=== PATIENT | male | born 1970 | race Caucasian/White ===

== ENCOUNTER → 2017-03-15 | Outpatient (CLI) | payer BC ==
--- NOTE | 2017-03-15 22:36 | CT ---
EXAMINATION TYPE: CT abdomen pelvis wo con DATE OF EXAM: 03/15/2017 HISTORY: Right flank pain and hematuria x 4 weeks. History of kidney stones. CT DLP: 578.60 mGycm. Automated Exposure Control for Dose Reduction was Utilized. TECHNIQUE: CT scan of the abdomen and pelvis is performed without oral or IV contrast. COMPARISON: CT chest abdomen and pelvis February 02, 2016 FINDINGS: Within the limitations of a non-contrast study, the following observations are made. LUNG BASES: No significant abnormality is appreciated. LIVER/GB: Liver is diffusely low dense consistent with fatty infiltration. PANCREAS: No significant abnormality is seen. SPLEEN: No significant abnormality is seen. ADRENALS: No significant abnormality is seen. KIDNEYS: There is redemonstration of 2-3 small calculi scattered throughout left kidney not significa ntly changed in size or number from prior study. Largest stone measures 5 mm on long axis on axial im age 61 and is stable. No right-sided renal calculi are evident. No hydronephrosis or obstructing raffaele l calculi are clearly present bilaterally. No intraluminal calculus in the bladder is seen. BOWEL: Debris-filled stomach is present suggesting recent meal ingestion prior to study. No suspiciou s dilatation is seen. GENITAL ORGANS: No gross abnormality seen. LYMPH NODES: No greater than 1cm abdominal or pelvic lymph nodes are appreciated. OSSEOUS STRUCTURES: There is posterior fusion hardware lumbosacral junction redemonstrated. There is stable grade 1 anterolisthesis of L5 on S1 felt present. Streak artifact from metallic hardware makes evaluation at this level suboptimal. OTHER: No significant additional abnormality is seen. IMPRESSION: There are 2-3 small nonobstructing left renal calculi redemonstrated. No hydronephrosis o r obstructing renal calculi are clearly seen bilaterally.
== END | disposition home or self-care (01) ==
LOC: RADCTMAIN 18:51
PROVIDERS: ATTEND Urology
DX: N20.0 Calculus of kidney (principal); Z88.0 Allergy status to penicillin; Z88.5 Allergy status to narcotic agent
CPT/HCPCS: 74176

== ENCOUNTER → 2020-02-14 | Outpatient (CLI) | payer BC ==
--- NOTE | 2020-02-14 09:07 | US ---
EXAMINATION TYPE: US liver DATE OF EXAM: 02/14/2020 COMPARISON: CT 2017 CLINICAL HISTORY: K76.0 NoN alcoholic Fatty liver. Intermittent abdomen pain and nausea x 5 years EXAM MEASUREMENTS: Liver Length: 18.2 cm Gallbladder Wall: 0.2 cm CBD: 0.5 cm Right Kidney: 11.4 x 4.8 x 5.4 cm Pancreas: visualized portions wnl, limited by overlying midline bowel gas Liver: enlarged, attenuating, heterogeneous, increased echogenicity Gallbladder: wnl Evidence for sonographic Horton's sign: no CBD: visualized portions wnl, limited by overlying bowel gas Right Kidney: 0.4cm echogenic focus mid pole IMPRESSION: Hepatic steatosis with underlying hepatomegaly.
[2020-02-14 11:04] LABS: ALT 67 U/L (4-49); AST 51 U/L (17-59); African American GFR (CKD) >90 (>60 ml/min/1.73 sqM); Albumin 5.1 g/dL (3.5-5.0); Alkaline Phosphatase 65 U/L (38-126); Anion Gap 9 mmol/L; Blood Urea Nitrogen 18 mg/dL (9-20); Calcium 9.7 mg/dL (8.4-10.2); Carbon Dioxide 28 mmol/L (22-30); Chloride 104 mmol/L (98-107); Glucose 106 mg/dL (74-99); Non-African American GFR(CKD) 79 (>60 ml/min/1.73 sqM); Potassium 4.4 mmol/L (3.5-5.1); Sodium 141 mmol/L (137-145); Total Bilirubin 0.8 mg/dL (0.2-1.3); Total Protein 7.6 g/dL (6.3-8.2)
== END | disposition home or self-care (01) ==
LOC: RADUSWWP 08:17
PROVIDERS: ATTEND Internal Medicine Gastroenterology
DX: K76.0 Fatty (change of) liver, not elsewhere classified (principal); R77.8 Other specified abnormalities of plasma proteins; R16.0 Hepatomegaly, not elsewhere classified
CPT/HCPCS: 36415; 76705; 80053; 82105

== ENCOUNTER → 2020-07-22 | Outpatient (CLI) | payer BC | END | disposition home or self-care (01) | LOC: LABWHC1 09:41 | PROVIDERS: ATTEND Physician Assistant | DX: R50.9 Fever, unspecified (principal) | CPT/HCPCS: U0003; C9803 ==

== ENCOUNTER → 2021-11-24 | Outpatient (CLI) | payer BC ==
--- NOTE | 2021-11-24 07:47 | US ---
EXAMINATION TYPE: US liver DATE OF EXAM: 11/24/2021 COMPARISON: NONE CLINICAL HISTORY: K76.0 FATTY (CHANGE OF) LIVER, NOT ELSEWHERE CLASSIFIED. EXAM MEASUREMENTS: Liver Length: 18.5 cm Gallbladder Wall: 0.2 cm CBD: 0.2 cm Right Kidney: 10.4 x 3.9 x 5.9 cm Pancreas: Mostly obscured by bowel gas, portions visualized wnl Liver: Increased attenuation, upper limits of normal in size Gallbladder: wnl Evidence for sonographic Horton's sign: No CBD: wnl Right Kidney: No hydronephrosis or masses seen, inferior pole somewhat obscured by overlying bowel g as IMPRESSION: Suspect hepatic steatosis.
== END | disposition home or self-care (01) ==
LOC: RADUSWWP 07:01
PROVIDERS: ATTEND Internal Medicine Gastroenterology
DX: K76.0 Fatty (change of) liver, not elsewhere classified (principal)
CPT/HCPCS: 76705

== ENCOUNTER → 2022-05-11 | Outpatient (CLI) | payer OTHER ==
[2022-05-11 10:52] LABS: African American GFR (CKD) 88.4 (60.0-200.0); Albumin 4.7 g/dL (3.8-4.9); Albumin/Globulin Ratio 1.74 (1.60-3.17); Anion Gap 8.2 mmol/L (10.00-18.00); BUN/Creat Ratio 12.45 Ratio (12.00-20.00); Blood Urea Nitrogen 13.7 mg/dL (9.0-27.0); Calcium 9.5 mg/dL (8.7-10.3); Carbon Dioxide 28.8 mmol/L (20.0-27.5); Globulin 2.7 g/dL (1.6-3.3); Non-African American GFR(CKD) 76.2 (60.0-200.0); Potassium 4.8 mmol/L (3.5-5.5); Total Bilirubin 0.6 mg/dL (0.30-1.20); Total Protein 7.4 g/dL (6.2-8.2)
[2022-05-11 11:35] LABS: Basophils # (A) 0.05 X 10*3/uL (0.00-0.10); Basophils % (A) 1.2 %; Eosinophils # (A) 0.11 X 10*3/uL (0.04-0.35); Eosinophils % (A) 2.6 %; HCT 47.8 % (39.6-50.0); HGB 16.3 g/dL (13.0-17.0); Immature Grans, Automated 0.2 %; Lymphocytes % (A) 39.8 %; MCH 30.8 pg (27.0-32.0); MCHC 34.1 g/dL (32.0-37.0); MCV 90.4 fL (80.0-97.0); Mean Platelet Volume 11.2 fL (9.5-12.2); Monocytes # (A) 0.22 X 10*3/uL (0.20-1.00); Monocytes % (A) 5.2 %; NRBC Per 100 WBC 0 /100 WBCS (0.0-0.0); Neutrophils # (A) 2.18 X 10*3/uL (1.80-7.70); Platelet Count 118 X 10*3/uL (140-440); RBC 5.29 X 10*6/uL (4.40-5.60); RDW 12.7 % (11.5-14.5); WBC 4.27 X 10*3/uL (4.50-10.00)
== END | disposition home or self-care (01) ==
LOC: LABWHC1 06:55
PROVIDERS: ATTEND Internal Medicine Gastroenterology
DX: K76.0 Fatty (change of) liver, not elsewhere classified (principal)
CPT/HCPCS: 36415; 80053; 82105; 85025

== ENCOUNTER → 2022-06-23 | Outpatient (CLI) | payer OTHER | END | disposition home or self-care (01) | LOC: LABWHC1 13:39 | PROVIDERS: ATTEND Family Medicine | DX: E11.9 Type 2 diabetes mellitus without complications (principal) | CPT/HCPCS: 82043; 82570 ==

== ENCOUNTER → 2022-08-05 | Outpatient (CLI) | payer OTHER ==
[2022-08-05 11:00] LABS: African American GFR (CKD) 112.6 (60.0-200.0); Albumin 4.7 g/dL (3.8-4.9); Albumin/Globulin Ratio 1.96 (1.60-3.17); Anion Gap 6.1 mmol/L (10.00-18.00); BUN/Creat Ratio 18.78 Ratio (12.00-20.00); Blood Urea Nitrogen 16.9 mg/dL (9.0-27.0); Calcium 10.4 mg/dL (8.7-10.3); Carbon Dioxide 32.9 mmol/L (20.0-27.5); Globulin 2.4 g/dL (1.6-3.3); Magnesium 2.1 mg/dL (1.5-2.4); Non-African American GFR(CKD) 97.2 (60.0-200.0); Potassium 4.4 mmol/L (3.5-5.5); Total Bilirubin 0.7 mg/dL (0.30-1.20); Total Protein 7.1 g/dL (6.2-8.2)
[2022-08-05 12:33] LABS: Basophils # (A) 0.03 X 10*3/uL (0.00-0.10); Basophils % (A) 0.7 %; Eosinophils # (A) 0.13 X 10*3/uL (0.04-0.35); Eosinophils % (A) 2.8 %; HCT 47.8 % (39.6-50.0); HGB 16.5 g/dL (13.0-17.0); Immature Grans, Automated 0.2 %; Lymphocytes # (A) 1.68 X 10*3/uL (0.90-5.00); Lymphocytes % (A) 36.4 %; MCHC 34.5 g/dL (32.0-37.0); MCV 89.8 fL (80.0-97.0); Mean Platelet Volume 11.5 fL (9.5-12.2); Monocytes # (A) 0.26 X 10*3/uL (0.20-1.00); Monocytes % (A) 5.6 %; NRBC Per 100 WBC 0 /100 WBCS (0.0-0.0); Neutrophils % (A) 54.3 %; Platelet Count 114 X 10*3/uL (140-440); RBC 5.32 X 10*6/uL (4.40-5.60); RDW 12.2 % (11.5-14.5); WBC 4.61 X 10*3/uL (4.50-10.00)
== END | disposition home or self-care (01) ==
LOC: LABWHC1 07:04
PROVIDERS: ATTEND Family Medicine
DX: R25.2 Cramp and spasm (principal)
CPT/HCPCS: 36415; 80053; 83735; 85025

== ENCOUNTER → 2022-10-20 | Outpatient (CLI) | payer MEDICARE ==
[2022-10-20 11:33] LABS: Platelet Count 118 X 10*3/uL (140-440)
== END | disposition home or self-care (01) ==
LOC: LABWHC1 06:46
PROVIDERS: ATTEND Physician Assistant
DX: R79.89 Other specified abnormal findings of blood chemistry (principal)
CPT/HCPCS: 36415; 85049

== ENCOUNTER → 2023-01-19 | Outpatient (CLI) | payer OTHER ==
[2023-01-19 11:04] LABS: HCT 48.7 % (39.6-50.0); HGB 16.5 d/dL (12.0-15.0); MCH 30.1 pg (27.0-32.0); MCHC 33.9 d/dL (32.0-37.0); MCV 88.9 FL (80.0-97.0); Mean Platelet Volume 10.8 FL (9.5-12.2); NRBC Per 100 WBC 0 X 10*3/uL (0.00-0.01); Platelet Count 124 X 10*3/uL (140-440); RBC 5.48 X 10*6/uL (4.40-5.60); RDW 12.6 % (11.5-14.5); WBC 5.31 X 10*3/uL (4.50-10.00)
[2023-01-19 11:34] LABS: Blood Urea Nitrogen 18.9 mg/dL (9.0-27.0); Calcium 9.9 mg/dL (8.7-10.3); Carbon Dioxide 30.2 mmol/L (21.6-31.8); Chloride 100 mmol/L (96-109); Glucose 180 mg/dL (70-110); Potassium 4.3 mmol/L (3.5-5.5); Sodium 140 mmol/L (135-145)
== END | disposition home or self-care (01) ==
LOC: LABWHC1 06:53
PROVIDERS: ATTEND Family Medicine
DX: E11.65 Type 2 diabetes mellitus with hyperglycemia (principal)
CPT/HCPCS: 36415; 80048; 83036; 85027

== ENCOUNTER → 2023-03-24 | Outpatient (CLI) | payer BC, OTHER ==
--- NOTE | 2023-03-24 10:00 | US ---
EXAMINATION TYPE: US liver DATE OF EXAM: 03/24/2023 COMPARISON: NONE CLINICAL INDICATION: Male, 52 years old with history of K76.0 FATTY (CHANGE OF) LIVER, NOT ELSEWHERE CLASS; fatty liver TECHNIQUE: Multiple sonographic images of the right upper quadrant are obtained. FINDINGS: EXAM MEASUREMENTS: Liver Length: 19.3 cm Gallbladder Wall: .2 cm CBD: .4 cm Right Kidney: 10.1 x 4.5 x 4.4 cm READ[employer] ADVISORY SERVICE LIBRARIAN NOTES: Pancreas: Obscured by bowel gas Liver: Increased attenuation fatty infiltrate hepatomegaly. Gallbladder: No stones seen Evidence for sonographic Horton's sign: No CBD: wnl Right Kidney: No hydronephrosis or masses seen IMPRESSION: Hepatic steatosis with underlying hepatomegaly.
== END | disposition home or self-care (01) ==
LOC: RADUSWWP 08:28
PROVIDERS: ATTEND Internal Medicine Gastroenterology
DX: K76.0 Fatty (change of) liver, not elsewhere classified (principal); R16.0 Hepatomegaly, not elsewhere classified
CPT/HCPCS: 76705

== ENCOUNTER → 2023-05-11 | Outpatient (CLI) | payer BC ==
[2023-05-11 11:29] LABS: HCT 47.2 % (39.6-50.0); HGB 16.5 d/dL (13.0-17.0); MCH 30.8 pg (27.0-32.0); MCV 88.2 FL (80.0-97.0); Mean Platelet Volume 10.7 FL (9.5-12.2); NRBC Per 100 WBC 0 X 10*3/uL (0.00-0.01); Platelet Count 111 X 10*3/uL (140-440); RBC 5.35 X 10*6/uL (4.40-5.60); RDW 12.4 % (11.5-14.5); WBC 5.16 X 10*3/uL (4.50-10.00)
[2023-05-11 11:41] LABS: Microalbumin Creatinine Ratio <6 mg/g Cr (0-30)
[2023-05-11 11:52] LABS: ALT 57 U/L (10-49); AST 31 U/L (14-35); Albumin 4.7 d/dL (3.8-4.9); Albumin/Globulin Ratio 1.96 Ratio (1.60-3.17); Alkaline Phosphatase 99 U/L (41-126); Blood Urea Nitrogen 17.8 mg/dL (9.0-27.0); Calcium 9.9 mg/dL (8.7-10.3); Carbon Dioxide 29.1 mmol/L (21.6-31.8); Chloride 105 mmol/L (96-109); Chol/HDL Ratio 4.45 Ratio; Globulin 2.4 d/dL (1.6-3.3); Glucose 160 mg/dL (70-110); LDL Cholesterol,Calculated 85.6 mg/dL (0.0-131.0); Potassium 4.6 mmol/L (3.5-5.5); Sodium 142 mmol/L (135-145); Total Bilirubin 0.7 mg/dL (0.3-1.2); Total Protein 7.1 d/dL (6.2-8.2)
[2023-05-11 11:53] LABS: Prostate Specific Antigen 0.58 ng/mL (0.000-3.500)
[2023-05-11 12:18] LABS: Appearance,Urine Clear (Clear); Bilirubin,Urine Negative (Negative); Blood,Urine Negative (Negative); Color,Urine Yellow (Yellow); Ketones,Urine Trace (Negative); Nitrite,Urine Negative (Negative); PH, Urine 5.5
== END | disposition home or self-care (01) ==
LOC: LABWHC1 06:58
PROVIDERS: ATTEND Family Medicine
DX: Z00.00 Encounter for general adult medical examination without abnormal findings (principal); E11.65 Type 2 diabetes mellitus with hyperglycemia
CPT/HCPCS: 36415; 80053; 80061; 81003; 82043; 82570; 83036; 84153; 85027

== ENCOUNTER → 2023-06-14 | Outpatient (CLI) | payer BC ==
[2023-06-14 08:03] LABS: Mean Platelet Volume 7.9; Platelet Count 113 k/uL (150-450)
== END | disposition home or self-care (01) ==
LOC: LABWHC1 06:53
PROVIDERS: ATTEND Physician Assistant
DX: D69.6 Thrombocytopenia, unspecified (principal); K76.0 Fatty (change of) liver, not elsewhere classified
CPT/HCPCS: 36415; 84460; 85049

== ENCOUNTER → 2023-10-27 | Outpatient (CLI) | payer BC ==
--- NOTE | 2023-10-27 08:44 | US ---
EXAMINATION TYPE: US liver DATE OF EXAM: 10/27/2023 COMPARISON: 03/24/2023. CLINICAL INDICATION: Male, 53 years old with history of K76.0 FATTY (CHANGE OF) LIVER, NOT ELSEWHERE CLASS; known fatty liver, no symptoms TECHNIQUE: Multiple sonographic images of the right upper quadrant are obtained. FINDINGS: EXAM MEASUREMENTS: Liver Length: 18.0 cm Gallbladder Wall: 0.2 cm CBD: 0.6 cm Right Kidney: 11.7 x 5.4 x 5.1 cm Pancreas: wnl Liver: fatty appearance, difficult to penetrate, upper limits of normal, no evidence for mass, cysti c structure, or dilated duct. Gallbladder: wnl Evidence for sonographic Horton's sign: no CBD: wnl Right Kidney: wnl IMPRESSION: 1. No evidence for acute process. 2. Hepatic steatosis no suspicious observations.
[2023-10-27 11:46] LABS: Basophils # (A) 0.02 X 10*3/uL (0.00-0.10); Basophils % (A) 0.5 %; Eosinophils # (A) 0.08 X 10*3/uL (0.04-0.35); Eosinophils % (A) 2.2 %; HGB 16.1 g/dL (13.0-17.0); Lymphocytes # (A) 1.12 X 10*3/uL (0.90-5.00); Lymphocytes % (A) 30.4 %; MCH 31.2 pg (27.0-32.0); MCHC 35.8 g/dL (32.0-37.0); MCV 87.2 FL (80.0-97.0); Mean Platelet Volume 11.8 FL (9.5-12.2); Monocytes # (A) 0.21 X 10*3/uL (0.20-1.00); Monocytes % (A) 5.7 %; NRBC Per 100 WBC 0 X 10*3/uL (0.00-0.01); Neutrophils # (A) 2.25 X 10*3/uL (1.80-7.70); Neutrophils % (A) 60.9 %; Platelet Count 83 X 10*3/uL (140-440); RBC 5.16 X 10*6/uL (4.40-5.60); RDW 12.4 % (11.5-14.5); WBC 3.69 X 10*3/uL (4.50-10.00)
[2023-10-27 12:15] LABS: ALT 110 U/L (10-49); AST 62 U/L (14-35); Albumin 4.4 g/dL (3.8-4.9); Albumin/Globulin Ratio 1.83 Ratio (1.60-3.17); Alkaline Phosphatase 147 U/L (41-126); BUN/Creat Ratio 18.12 Ratio (12.00-20.00); Blood Urea Nitrogen 14.5 mg/dL (9.0-27.0); Calcium 9.5 mg/dL (8.7-10.3); Carbon Dioxide 28.3 mmol/L (21.6-31.8); Chloride 102 mmol/L (96-109); Globulin 2.4 g/dL (1.6-3.3); Glucose 345 mg/dL (70-110); Potassium 4.3 mmol/L (3.5-5.5); Sodium 140 mmol/L (135-145); Total Bilirubin 0.6 mg/dL (0.3-1.2); Total Protein 6.8 g/dL (6.2-8.2)
== END | disposition home or self-care (01) ==
LOC: RADUSWWP 07:13
PROVIDERS: ATTEND Internal Medicine Gastroenterology
DX: K76.0 Fatty (change of) liver, not elsewhere classified (principal)
CPT/HCPCS: 36415; 76705; 80053; 82105; 85025

== ENCOUNTER → 2023-12-22 | Outpatient (CLI) | payer BC ==
[2023-12-22 10:45] LABS: Microalbumin Creatinine Ratio <7 mg/g Cr (0-30)
[2023-12-22 10:51] LABS: ALT 70 U/L (10-49); AST 42 U/L (14-35); Albumin 4.5 g/dL (3.8-4.9); Albumin/Globulin Ratio 2.05 Ratio (1.60-3.17); Alkaline Phosphatase 109 U/L (41-126); Blood Urea Nitrogen 17.6 mg/dL (9.0-27.0); C-Peptide 6.13 ng/mL (0.81-3.85); Calcium 9.3 mg/dL (8.7-10.3); Carbon Dioxide 26.9 mmol/L (21.6-31.8); Chloride 104 mmol/L (96-109); Chol/HDL Ratio 4.97 Ratio; Globulin 2.2 g/dL (1.6-3.3); Glucose 186 mg/dL (70-110); LDL Cholesterol,Calculated 64.8 mg/dL (0.0-131.0); Potassium 4.5 mmol/L (3.5-5.5); Sodium 141 mmol/L (135-145); Total Bilirubin 0.5 mg/dL (0.3-1.2); Total Protein 6.7 g/dL (6.2-8.2)
== END | disposition home or self-care (01) ==
LOC: LABWHC1 06:51
PROVIDERS: ATTEND Internal Medicine
DX: E11.65 Type 2 diabetes mellitus with hyperglycemia (principal)
CPT/HCPCS: 36415; 80053; 80061; 82043; 82570; 83036; 84681

== ENCOUNTER → 2023-12-29 | Outpatient (CLI) | payer BC ==
[2023-12-29 10:42] LABS: Basophils # (A) 0.03 X 10*3/uL (0.00-0.10); Basophils % (A) 0.6 %; Eosinophils # (A) 0.14 X 10*3/uL (0.04-0.35); Eosinophils % (A) 2.8 %; HCT 47.6 % (39.6-50.0); HGB 16.1 g/dL (13.0-17.0); Lymphocytes # (A) 1.84 X 10*3/uL (0.90-5.00); Lymphocytes % (A) 36.2 %; MCH 31.1 pg (27.0-32.0); MCHC 33.8 g/dL (32.0-37.0); MCV 92.1 FL (80.0-97.0); Monocytes % (A) 5.9 %; NRBC Per 100 WBC 0 X 10*3/uL (0.00-0.01); Neutrophils # (A) 2.76 X 10*3/uL (1.80-7.70); Neutrophils % (A) 54.3 %; Platelet Count 102 X 10*3/uL (140-440); RBC 5.17 X 10*6/uL (4.40-5.60); RDW 12.9 % (11.5-14.5); WBC 5.08 X 10*3/uL (4.50-10.00)
== END | disposition home or self-care (01) ==
LOC: LABWHC1 06:52
PROVIDERS: ATTEND Family Medicine
DX: D69.6 Thrombocytopenia, unspecified (principal)
CPT/HCPCS: 36415; 85025

== ENCOUNTER → 2024-04-29 | Outpatient (CLI) | payer BC ==
[2024-04-29 10:21] LABS: Basophils # (A) 0.03 X 10*3/uL (0.00-0.10); Basophils % (A) 0.6 %; Eosinophils # (A) 0.13 X 10*3/uL (0.04-0.35); Eosinophils % (A) 2.4 %; HCT 47.9 % (39.6-50.0); HGB 16.8 g/dL (13.0-17.0); Lymphocytes # (A) 1.67 X 10*3/uL (0.90-5.00); Lymphocytes % (A) 31.3 %; MCH 31.2 pg (27.0-32.0); MCHC 35.1 g/dL (32.0-37.0); MCV 88.9 FL (80.0-97.0); Monocytes # (A) 0.26 X 10*3/uL (0.20-1.00); Monocytes % (A) 4.9 %; NRBC Per 100 WBC 0 X 10*3/uL (0.00-0.01); Neutrophils # (A) 3.24 X 10*3/uL (1.80-7.70); Neutrophils % (A) 60.6 %; Platelet Count 103 X 10*3/uL (140-440); RBC 5.39 X 10*6/uL (4.40-5.60); RDW 12.3 % (11.5-14.5); WBC 5.34 X 10*3/uL (4.50-10.00)
[2024-04-29 10:33] LABS: Blood Urea Nitrogen 15.4 mg/dL (9.0-27.0); Carbon Dioxide 27.3 mmol/L (21.6-31.8); Chloride 103 mmol/L (96-109); Glucose 151 mg/dL (70-110); Potassium 4.3 mmol/L (3.5-5.5); Sodium 141 mmol/L (135-145)
[2024-04-29 10:34] LABS: ALT 75 U/L (10-49); AST 49 U/L (14-35); Albumin 4.7 g/dL (3.8-4.9); Albumin/Globulin Ratio 1.88 Ratio (1.60-3.17); Alkaline Phosphatase 102 U/L (41-126); Calcium 9.5 mg/dL (8.7-10.3); Globulin 2.5 g/dL (1.6-3.3); Total Bilirubin 0.8 mg/dL (0.3-1.2); Total Protein 7.2 g/dL (6.2-8.2)
== END | disposition home or self-care (01) ==
LOC: LABWHC1 06:58
PROVIDERS: ATTEND Internal Medicine Gastroenterology
DX: K76.0 Fatty (change of) liver, not elsewhere classified (principal)
CPT/HCPCS: 36415; 80053; 82105; 85025

== ENCOUNTER 2024-06-21 11:16 | Day surgery (SDC) | payer BC ==
[2024-06-20 08:40] VITALS: BMI 27.8
[2024-06-21 11:46] VITALS: TEMP 97.7
[2024-06-21] MEDS: LACTATED RINGERS 1,000 ML IV SCH (11:51)
[2024-06-21] MEDS: IV FLUID CONTINUATION 1,000 ML IV ONE (11:51)
[2024-06-21 11:58] LABS: Glucose,Whole Blood 124 mg/dL (70-110)
[2024-06-21] MEDS ORDERED: LIDOCAINE 1% INJ 10MG/ML (20 ML MDV) ONE (12:37)
[2024-06-21] MEDS ORDERED: PROPOFOL 10 MG/ML 20 ML VIAL IV ONE (12:37)
--- NOTE | 2024-06-21 12:46 | P.PCN ---
Date of Procedure: 06/21/24 Procedure(s) Performed: BRIEF HISTORY: Patient is a 53-year-old, pleasant, white male scheduled for an endoscopy as a part of screening for esophageal varices. He was diagnosed with fatty liver disease with possible liver cirrhosis. He denies any GI symptoms. PROCEDURE PERFORMED: Esophagogastroduodenoscopy. PREOPERATIVE DIAGNOSIS: Fatty liver disease with possible liver cirrhosis. IV sedation per anesthesia. PROCEDURE: After informed consent was obtained, the patient was brought into the endoscopy unit. IV sedation was administered by Anesthesia under continuous monitoring. Initially the Olympus GIF-140 video endoscope was inserted into the mouth. Esophagus intubated without any difficulty. It was gradually advanced into the stomach and duodenum and carefully examined. The bulb and the second part of the duodenum appeared normal. The scope at this time was withdrawn to the stomach, adequately insufflated with air, and upon careful examination, mucosa of the antrum, body, cardia and the fundus appeared normal. No gastric varices identified. The scope was then withdrawn into the esophagus. The GE junction was located at 39 cm from the incisors. The esophagus appeared normal. There were no erosions or ulcerations seen. No evidence of esophageal varices and the patient tolerated the procedure well. IMPRESSION: 1. No evidence of gastric or esophageal varices. 2. No evidence of esophagitis or Slaughter's esophagus. RECOMMENDATIONS: The findings of this examination were discussed with the patient as well as his family.. He was advised to have repeat upper endoscopy in 3 years to screen for esophageal varices.
[2024-06-21 13:09] VITALS: BP 146/78; PULSE 77; RESP 18
== END 2024-06-21 14:03 | disposition home or self-care (01) ==
LOC: ORWHC2ENDO 11:16
PROVIDERS: ATTEND Internal Medicine Gastroenterology
DX: K76.0 Fatty (change of) liver, not elsewhere classified (principal); E11.9 Type 2 diabetes mellitus without complications; I67.9 Cerebrovascular disease, unspecified; K21.9 Gastro-esophageal reflux disease without esophagitis; Z88.5 Allergy status to narcotic agent; Z88.0 Allergy status to penicillin; Z91.041 Radiographic dye allergy status; Z79.4 Long term (current) use of insulin; Z79.899 Other long term (current) drug therapy
CPT/HCPCS: 43235; J2003; J2704

== ENCOUNTER → 2024-06-28 | Outpatient (CLI) | payer BC ==
--- NOTE | 2024-06-28 07:52 | US ---
EXAMINATION TYPE: US liver DATE OF EXAM: 06/28/2024 COMPARISON: US(10/27/2023) CLINICAL INDICATION: Male, 53 years old with history of K76.0 FATTY LIVER; TECHNIQUE: Grayscale and color Doppler imaging of the right upper quadrant was performed. FINDINGS: EXAM MEASUREMENTS: Liver Length: 17.4 Gallbladder Wall: 0.1m CBD: 0.4m Right Kidney: 12.3x4.2x6.0cm CABLE TECHNICIAN NOTES:difficult due to gas Pancreas: Tail obscured by overlying bowel gas Liver: Increased attenuation, decreased visualization of vessels suggestive of fatty infiltrate Dif ficult to penetrate Gallbladder: No stones seen Evidence for sonographic Horton's sign: No CBD: wnl Right Kidney: No hydronephrosis or masses seen IMPRESSION: Probable hepatic steatosis. [facility], , 06/28/2024 7:50 AM
== END | disposition home or self-care (01) ==
LOC: RADUSWWP 07:00
PROVIDERS: ATTEND Internal Medicine Gastroenterology
DX: K76.0 Fatty (change of) liver, not elsewhere classified (principal)
CPT/HCPCS: 76705

== ENCOUNTER → 2024-10-31 | Outpatient (CLI) | payer BC ==
--- NOTE | 2024-10-31 08:49 | US ---
EXAMINATION TYPE: US liver DATE OF EXAM: 10/31/2024 COMPARISON: 06/28/24 ultrasound CLINICAL INDICATION: Male, 54 years old with history of K76.0 FATTY LIVER; fatty liver TECHNIQUE: Grayscale and color Doppler imaging of the right upper quadrant was performed. FINDINGS: EXAM MEASUREMENTS: Liver Length: 17.4 cm Gallbladder Wall: 0.2 cm CBD: 0.5 cm Right Kidney: 11.2 x 5.4 x 4.9 cm MEMBER SERVICES REPRESENTATIVE NOTES: Pancreas: tail obscured by bowel gas Liver: heterogeneous Gallbladder: wnl Evidence for sonographic Horton's sign: No CBD: wnl Right Kidney: wnl Persistent heterogeneous hyperechoic appearance of liver. This limits evaluation for focal masses. No ascites. IMPRESSION: Persistent diffuse fatty infiltrative hepatocellular disease. No ascites. No significant change from most recent prior. [facility], , 10/31/2024 8:47 AM
== END | disposition home or self-care (01) ==
LOC: RADUSWWP 06:55
PROVIDERS: ATTEND Internal Medicine Gastroenterology
DX: K76.0 Fatty (change of) liver, not elsewhere classified (principal); K76.89 Other specified diseases of liver
CPT/HCPCS: 76705